=== PATIENT | male | born 1995 | race Caucasian/White ===

== ENCOUNTER 2022-11-10 14:49 | Outpatient (CLI) | payer BC, MEDICAID, SELFPAY ==
--- NOTE | 2022-11-10 15:11 | XR_ITS ---
WS: [id number] XR lumbar spine 6V w [id number]/e [id number] REASON FOR EXAM: Chronic lower back pain FINDINGS: Minimal rotatory scoliosis convex left. Normal lordosis. No vertebral body abnormality. Mild narrowing of the L5/S1. Disc space. No spondylolysis. No significant spondylolisthesis. No abnormal vertebral body movement with flexion and extension. IMPRESSION: Minimal rotatory scoliosis. Mild disc space narrowing L5/S1.
== END 2022-11-10 14:50 | disposition home or self-care (01) ==
PROVIDERS: PCP Nurse Practitioner Family; Visit Provider Nurse Practitioner Family
DX: M41.86 Other forms of scoliosis, lumbar region (principal); M54.50 Low back pain, unspecified; G89.29 Other chronic pain
CPT/HCPCS: 72114

== ENCOUNTER 2022-11-22 07:32 | Outpatient (CLI) | payer BC, MEDICAID, SELFPAY ==
--- NOTE | 2022-11-22 07:40 | US_ITS ---
WS: [id number] TESTICULAR ULTRASOUND HISTORY: LEFT TESTICULAR PAIN COMPARISON: None available. TECHNIQUE: Real-time and color Doppler imaging or utilized to perform a testicular ultrasound. Right testicle: 5.0 cm x 3.0 cm x 2.4 cm. Normal size and echogenicity. No mass or torsion. Normal color Doppler is present throughout. Systolic and diastolic velocities are both present. No significant hydrocele. Right epididymis: Small spermatocele in the epididymal head measures 7 x 9 x 7 mm. No solid mass. No increased vascularity. Left testicle: 4.6 cm x 3.0 cm x 2.6 cm. Normal size and echogenicity. No mass or torsion. Normal color Doppler is present throughout. Systolic and diastolic velocities are both present. No significant hydrocele. Left epididymis: Mildly heterogeneous epididymis. No increased vascularity. IMPRESSION: 1. No testicular mass or torsion. 2. LEFT epididymal spermatocele.
== END 2022-11-22 07:33 | disposition home or self-care (01) ==
PROVIDERS: PCP Nurse Practitioner Family; Visit Provider Nurse Practitioner Family
DX: N43.41 Spermatocele of epididymis, single (principal); N50.812 Left testicular pain
CPT/HCPCS: 76870

== ENCOUNTER 2023-04-12 22:43 | Inpatient (IN) | payer BC, SELFPAY ==
[2023-04-12 22:47] VITALS: BP 158/111; PULSE 111; RESP 17; TEMP 36.4; O2SAT 91; BMI 24.7
--- NOTE | 2023-04-12 23:07 | PC.NURSE ---
PATIENT HAS BEEN DRESSED OUT AND BELONGINGS REMOVED AND LABELED. PT PLACED WITH PSA.
--- NOTE | 2023-04-12 23:26 | PC.NURSE ---
96 hour Involuntary Patient Hold Rights have been read to patient and a copy of the same has been provided to him. Production Assembler Teodoro Diaz was present at bedside.
[2023-04-12 23:31] LABS: Basophils % 0.4 %; Eosinophils # 0.1 10^3/uL (0.0-0.8); Eosinophils % 0.5 %; Hematocrit 43.7 % (37-53); Lymphocytes # 2.2 10^3/uL (0.8-4.8); Lymphocytes % 21.6 %; Mean Corpuscular HGB Conc 34.1 g/dL (30-55); Mean Corpuscular Hemoglobin 30.3 pg (27-33); Mean Corpuscular Volume 88.8 fl (82-101); Mean Platelet Volume 9.3 fL (7.4-10.4); Monocytes # 0.7 10^3/uL (0.2-0.9); Monocytes % 6.7 %; Neutrophils # 7.16 10^3/uL (1.8-7.7); Neutrophils % 70.6 %; Nucleated Red Blood Cells % 0 %; Platelet Count 290 10^3/cmm (157-399); Red Blood Count 4.92 10^6/uL (3.85-5.65); Red Cell Distribution Width 12.1 % (12.1-15.1); White Blood Count 10.14 10^3/uL (3.29-11.43)
--- NOTE | 2023-04-12 23:38 | ED.C_ITS ---
HPI - Psych 2 General: Chief Complaint: Psychiatric Symptoms Stated Complaint: PD Hold 96 Hours Time Seen by Provider: 04/12/23 23:02 History of Present Illness: Patient is presented to the ER by PD with for 96-hour hold. Per the police statement he has making suicidal threats and statements. Patient has been drinking. Patient denies using any drugs but has state he drank a sixpack of beer and 3/5 of a bottle of wild turkey. Patient keeps repeatedly stating I am sorry and is very tearful. Patient denies suicidal ideation or suicidal attempt but is willing to be treated inpatient for help. Review of Systems 2 General: Reports: 10 or more systems reviewed and unremarkable except in HPI and below Physical Exam 2 Const: COMMON NORMALS: no acute distress, average body habitus, patient oriented x3, healthy appearing, alert and well nourished HENMT: COMMON NORMALS: normocephalic, atraumatic, hearing grossly normal bilaterally, external ears normal, Normal external nose present, moist oral mucous membranes and oropharynx normal HEAD & SCALP: normocephalic and atraumatic NOSE: Normal external nose present EXTERNAL EAR: Yes external ears normal Neck/C-Spine: COMMON NORMALS: full ROM, no lymphadenopathy, supple, no meningeal signs, no JVD and Thyroid normal THYROID: Thyroid normal Chest: COMMONS NORMALS: normal inspection of the chest and normal palpation of entire chest wall Resp: COMMON NORMALS: normal respiratory effort, No retractions, No use of accessory muscles and clear to auscultation bilaterally AUSCULTATION: clear to auscultation bilaterally Cardio: COMMON NORMALS: no JVD, regular rate, regular rhythm, S1 normal heart sound present, S2 normal heart sound present, No gallops present (Cardio), No clicks present (Cardio), No murmurs present (Cardio) and No rub (Cardio) R ATE: regular rate RHYTHM: regular rhythm HEART SOUNDS: S1 normal heart sound present and S2 normal heart sound present GI: COMMON NORMALS: Normal to inspection, nondistended, normoactive bowel sounds present, Soft to palpation, non-tender, No hepatosplenomegaly present and no masses PALPATION: Yes Soft to palpation and Yes No hepatosplenomegaly present Neuro: COMMON NORMALS: patient oriented x3 SENSORIUM/ORIENTATION: Yes alert MENINGEAL SIGNS: Yes no meningeal signs Course 2 Vital Signs: Vital signs: Vital Signs Temperature 97.6 F 04/12/23 22:47 Pulse Rate 111 H 04/12/23 22:47 Respiratory Rate 17 04/12/23 22:47 Blood Pressure 158/111 04/12/23 22:47 Pulse Oximetry 91 04/12/23 22:47 Oxygen Delivery Me thod Room Air 04/12/23 22:47 MDM - Psych Medical Decision Making Patient was worked up in a usual psychiatric fashion and cleared medically. Patient is agreeable for inpatient treatment but also a 96-hour hold was placed on the patient. Dr. Cervantes was consulted who agreed to place patient in MPU for further evaluation and treatment. Differential Diagnosis Likely suicidal ideation and depression; Unlikely acute psychosis, chronic schizophrenia, bipolar disorder, drug-induced psychotic disorder or acute anxiety Medical Records I reviewed the patient's medical records. Lab Data I reviewed the patient's lab results. 04/12/23 23:25 04/12/23 23:25 Laboratory Results WBC 10.14 10^3/uL (3.29-11.43) 04/12/23 23:25 RBC 4.92 10^6/uL (3.85-5.65) 04/12/23 23:25 Hgb 14.90 g/dL (11.27-16.99) 04/12/23 23:25 Hct 43.7 % (37-53) 04/12/23 23:25 MCV 88.8 fl (82-101) 04/12/23 23:25 MCH 30.3 pg (27-33) 04/12/23 23:25 MCHC 34.1 g/dL (30-55) 04/12/23 23:25 RDW 12.1 % (12.1-15.1) 04/12/23 23:25 Plt Count 290 10^3/cmm (157-399) 04/12/23 23:25 MPV 9.3 fL (7.4-10.4) 04/12/23 23:25 Neut % (Auto) 70.6 % 04/12/23 23:25 Lymph % (Auto) 21.6 % 04/12/23 23:25 Chase % (Auto) 6.7 % 04/12/23 23:25 Eos % (Auto) 0.5 % 04/12/23 23:25 Baso % (Auto) 0.4 % 04/12/23 23:25 Neut # (Auto) 7.16 10^3/uL (1.8-7.7) 04/12/23 23:25 Lymph # (Auto) 2.2 10^3/uL (0.8-4.8) 04/12/23 23:25 Chase # (Auto) 0.7 10^3/uL (0.2-0.9) 04/12/23 23:25 Eos # (Auto) 0.1 10^3/uL (0.0-0.8) 04/12/23 23:25 Baso # (Auto) 0.0 10^3/uL (0.0-0.1) 04/12/23 23:25 Nucleated RBC % (auto) 0 % 04/12/23 23: Nucleated RBCs # 0.0 /100WBC 04/12/23 23:25 Sodium 145 mmol/L (136-145) 04/12/23 23:25 Potassium 4.2 mmol/L (3.5-5.1) 04/12/23 23:25 Chloride 110 mmol/L (98-107) H 04/12/23 23:25 Carbon Dioxide 21 mmol/L (22-29) L 04/12/23 23:25 Anion Gap 18.2 (5-19) 04/12/23 23:25 BUN 12 mg/dL (6-20) 04/12/23 23:25 Creatinine 1.0 mg/dL (0.7-1.2) 04/12/23 23:25 GFR Calculation 89.6 mL/min (90-130) L 04/12/23 23:25 Glucose 112 mg/dL (65-115) 04/12/23 23:25 Calculated Osmolality 301 mOsm/kg (285-295) H 04/12/23 23:25 Calcium 9.2 mg/dL (8.5-10.5) 04/12/23 23:25 Total Bilirubin 0.3 mg/dL (0.15-1.2) 04/12/23 23:25 AST 31 U/L (0-40) 04/12/23 23:25 ALT 24 U/L (0-41) 04/12/23 23:25 Alkaline Phosphatase 112 U/L (40-130) 04/12/23 23:25 Total Protein 8.0 g/dL (6.6-8.7) 04/12/23 23:25 Albumin 4.8 g/dL (3.5-5.2) 04/12/23 23:25 Globulin 3.2 g/dL (1.3-4.6) 04/12/23 23:25 TSH 0.86 uIU/mL (0.27-4.20) 04/12/23 23:25 Salicylates < 0.3 mg/dL (3-10) L 04/12/23 23:25 Acetaminophen < 5.0 ug/mL (10-30) L 04/12/23 23:25 Ethyl Alcohol 302 mg/dL (0-10) H* 04/12/23 23:25 All radiology interpretation(s) finalized by discharge Discharge Plan Discharge Patient Disposition: Admitted As Inpatient Clinical Impression: Suicidal ideation Alcohol intoxication Qualifiers: Complication of substance-induced condition: uncomplicated Qualified Code(s): F 10.920 - Alcohol use, unspecified with intoxication, uncomplicated Condition: Stable Coding Level of Care Code ED Autobody Technician for Nina Joseph
[2023-04-13 00:01] LABS: Alanine Aminotransferase 24 U/L (0-41); Albumin Level 4.8 g/dL (3.5-5.2); Alkaline Phosphatase 112 U/L (40-130); Anion Gap 18.2 (5-19); Aspartate Amino Transferase 31 U/L (0-40); Blood Urea Nitrogen 12 mg/dL (6-20); Calcium 9.2 mg/dL (8.5-10.5); Carbon Dioxide 21 mmol/L (22-29); Chloride 110 mmol/L (98-107); Globulin 3.2 g/dL (1.3-4.6); Glomerular Filtration Rate 89.6 mL/min (90-130); Glucose 112 mg/dL (65-115); Osmolality Calculated 301 mOsm/kg (285-295); Potassium 4.2 mmol/L (3.5-5.1); Sodium 145 mmol/L (136-145); Thyroid Stimulating Hormone 0.86 uIU/mL (0.27-4.20); Total Bilirubin 0.3 mg/dL (0.15-1.2)
[2023-04-13 00:02] LABS: Acetaminophen < 5.0 ug/mL (10-30); Salicylate < 0.3 mg/dL (3-10)
[2023-04-13 00:03] LABS: Alcohol Level 302 mg/dL (0-10)
[2023-04-13] MEDS: LORazepam 2 mg/mL INJ 10 mL MDV 1 MG IM ×2 (00:06→01:14)
[2023-04-13 01:10] LABS: Add Urine Culture? No; Add Urine Microscopic? YES; Amphetamines Screen Urine Negative (Negative); Bacteria Urine TRACE /hpf; Barbiturates Screen Urine Negative (Negative); Benzodiazepines Screen Urine Negative (Negative); Bilirubin Urine Neg (Negative); Blood Urine Trace (Negative); Cocaine Screen Urine Negative (Negative); Glucose Urine UA Norm (Normal); Ketones Urine 1+ (Negative); Leukocyte Esterase Urine Negative (Negative); Mucus Urine 1+ /hpf; Nitrate Urine Negative (Negative); Opiate Screen Urine Negative (Negative); PCP Screen Urine Negative (Negative); Protein Urine Neg (Negative); Specific Gravity, Urine 1.025 (1.005-1.030); THC Screen Urine Negative (Negative); Urine Appearance Clear (CLEAR); Urine Color Yellow (Yellow); Urobilinogen Urine Neg (Negative); pH Urine 5 (5-7)
[2023-04-13 01:32] LABS: Alcohol Level 265 mg/dL (0-10)
--- NOTE | 2023-04-13 01:38 | PC.NURSE ---
REPORT CALLED TO EMMETT NAGY IN NPU. ALL QUESTIONS AND CONCERNS ADDRESSED AT TIME OF REPORT.
[2023-04-13 01:43] VITALS: BP 112/77; PULSE 93; RESP 18; O2SAT 95
[2023-04-13 02:01] VITALS: BP 123/62; PULSE 89; RESP 16; O2SAT 94
[2023-04-13 02:02] VITALS: BP 123/63; PULSE 89; RESP 16; O2SAT 94
--- NOTE | 2023-04-13 02:04 | PC.NURSE ---
Patient arrived at unit @ 0155 and placed on bench on [address]. Patient was unable to sign admission paperwork. This tech was unable to go over paperwork with patient due to patients sedation from the ED.
--- NOTE | 2023-04-13 02:07 | PC.NURSE ---
Patient admission Patient arrived from ED too sedated to do admission questions and to change out green scrubs. His BAL was 302 then 265 and he had 2 mg of Ativan IM there. It took two staff to walk him to bed and he immediately was asleep.
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
[2023-04-13] MEDS: hyDROXYzine 25 mg Capsule 50 MG PO (11:17)
[2023-04-13] MEDS: fluoxetine 20 mg Capsule PO (12:39)
[2023-04-13 14:00] VITALS: BP 125/67; PULSE 87; RESP 12; O2SAT 96
[2023-04-13 21:18] VITALS: BP 125/67; PULSE 92; RESP 18; TEMP 37.2; O2SAT 96
[2023-04-14] MEDS: hyDROXYzine 25 mg Capsule 50 MG PO ×2 (01:19→19:25)
[2023-04-14 06:00] VITALS: RESP 16
--- NOTE | 2023-04-14 09:39 | P.NPUPN_ITS ---
Subjective NPU 2 Subjective: Patient presented today reporting that he was feeling better overall and really feeling like the situation was precipitated by him drinking. He reports not feeling any recollection of the situation that led to him coming here. He reports a desire to get back to work and then move out of the area to be where his dad is. We discussed the importance of him engaging in active treatment. Mental Status Exam 2 MSE Comments: This is a well-nourished well-developed white male, in hospital scrubs, with limited grooming and eye contact. No abnormal movements except for psychomotor retardation. Mostly cooperative with exam in mild distress. Speech was decreased rate and volume. Mood described as feeling a lot better, I think it was the drinking; affect congruent. Thought process, organized. Thought content: patient denied any suicidal or homicidal ideation, there were no delusions reported or noted, patient denied any auditory or visual hallucinations. Attention, concentration, and memory appeared intact, but none were formally tested. Alert and oriented times three. Insight and judgment appear improving. Impulse control is limited versus impaired. Vitals/I&O/Wt Last Vital Signs Temp 99.0 F 04/13/23 21:18 Pulse 92 04/13/23 21:18 Resp 16 04/14/23 06:00 BP 125/67 04/13/23 21:18 Pulse Ox 96 04/13/23 21:18 O2 Del Method Room Air 04/13/23 02:01 Weight last 48 hrs Weight 73.936 kg Data NPU 04/12/23 23:25 04/12/23 23:25 A&P Assessment and plan (1) Suicidal ideation: (2) Alcohol intoxication: Qualifiers: Complication of substance-induced condition: uncomplicated Qualified Code(s): F10.920 - Alcohol use, unspecified with intoxication, uncomplicated (3) Alcohol use disorder: (4) Major depressive disorder, recurrent: (5) Anxiety disorder: (6) PTSD (post-traumatic stress disorder): Plan This is a 27-year-old white male with a long history of depression, trauma and anxiety with active addiction and also previous history of addiction who presents after a reported alcohol binge reporting that he does not need to be hospitalized still and he is focused on getting back to work. 1.? Continue current medication. 2.? Obtain collateral information. 3.? Encourage individual, group, and milieu therapy. 4.? Continue q-15-minute checks for safety. 5.? Recommend sober living treatment at the highest level of care to which the patient is willing to commit. Involuntary Hold Information 2 96 Hour Hold: 96 Hour Involuntary Admission: Yes 96 Hour Hold Ending Date: 04/19/23 96 Hour Hold Ending Time: 23:02 Attestations NPU 2 Medical Necessity Statement*: Inpatient hospitalization is medically necessary and the clinically appropriate intervention, at this time. We will monitor medications and make changes as indicated. Likely length of stay is 1-3 days. Coding Level of Care Code Acute Code for [facility] Diagnoses Suicidal ideation R45.851 Alcohol intoxication F10.920 Complication of substance-induced condition: uncomplicated Alcohol use disorder F10.90 Major depressive disorder, recurrent F33.9 Anxiety disorder F41.9 PTSD (post-traumatic stress disorder) F43.10
[2023-04-14] MEDS: thiamine 100 mg Tablet PO (09:59)
[2023-04-14] MEDS: fluoxetine 20 mg Capsule PO (09:59)
[2023-04-14] MEDS: multivitamin therapeutic Tablet 1 TAB PO (09:59)
[2023-04-14] MEDS: folic acid 1 mg Tablet PO (09:59)
[2023-04-14 14:00] VITALS: BP 118/69; PULSE 109; RESP 14; TEMP 37.2; O2SAT 96
[2023-04-14 21:07] VITALS: BP 125/72; PULSE 84; RESP 18; O2SAT 96
[2023-04-15 06:00] VITALS: RESP 18
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
[2023-04-15 07:15] VITALS: RESP 18
[2023-04-15] MEDS: hyDROXYzine 25 mg Capsule 50 MG PO (08:23)
[2023-04-15] MEDS: folic acid 1 mg Tablet PO (08:23)
[2023-04-15] MEDS: thiamine 100 mg Tablet PO (08:23)
[2023-04-15] MEDS: multivitamin therapeutic Tablet 1 TAB PO (08:23)
[2023-04-15] MEDS: fluoxetine 20 mg Capsule PO (08:23)
== END 2023-04-15 10:28 | disposition home or self-care (01) | DRG 897 ==
LOC: ER 23:41 → NP 04-13 00:22
PROVIDERS: Nurse Practitioner Family; Admitting Provider Psychiatry & Neurology Psychiatry; Emergency Provider Emergency Medicine; PCP Nurse Practitioner Family; Visit Provider Psychiatry & Neurology Psychiatry
DX: F10.129 Alcohol abuse with intoxication, unspecified (principal); R45.851 Suicidal ideations; F33.9 Major depressive disorder, recurrent, unspecified; F41.9 Anxiety disorder, unspecified; F43.10 Post-traumatic stress disorder, unspecified
CPT/HCPCS: 36415; 80053; 80306; 80307; 81001; 84443; 85025; 96372; 97150; 97165; 99285; J2060